=== PATIENT | male | born 1985 | race Caucasian/White ===

== ENCOUNTER 2020-06-17 11:26 | Emergency (ER) | payer OTHER ==
[~2020-06-17] VITALS: Ht 193 cm; Wt 131.5 kg
--- NOTE | 2020-06-17 11:37 | NUR ---
Medical screening in progress by Dr Grewal.
[2020-06-17] MEDS ORDERED: HYDROCODONE/APAP 5-325MG TABLET ONE (11:45)
[2020-06-17] MEDS ORDERED: HYDROCODONE/APAP 5-325MG TABLET PO ONE (11:45)
[2020-06-17] MEDS ORDERED: IBUP-1958 PO (12:02)
[2020-06-17] MEDS ORDERED: HYDR-4209 PO (12:02)
[2020-06-17 12:10] VITALS: BP 123/51
--- NOTE | 2020-06-17 12:11 | NUR ---
Patient discharged to home in stable condition. Written and verbal after care instructions given. Patient verbalizes understanding of instructions. Stressed follow up or return to ER for worsening s/s. Pt left Er w/ steady gait accompained by family.
== END 2020-06-17 12:12 | disposition home or self-care (01) ==
LOC: ER 11:26
DX: S46.911A Strain of unspecified muscle, fascia and tendon at shoulder and upper arm level, right arm, initial encounter (principal); X50.0XXA Overexertion from strenuous movement or load, initial encounter; Y93.89 Activity, other specified; Y92.89 Other specified places as the place of occurrence of the external cause
CPT/HCPCS: 73030; A4663